=== PATIENT | male | born 1995 | race Caucasian/White ===

== ENCOUNTER 2019-02-28 19:07 | Emergency (ER) | payer MEDICAID, OTHER ==
[~2019-02-28] VITALS: Ht 188 cm; Wt 115.7 kg
[~2019-02-28 19:07] MED LIST: BACTDS PO; CEPH-443 PO; DIPH25CA6 PO; GUAI-637 PO; IBUP-1542 PO; IBUP800T48 PO; SODI44SP11 NASAL; TRAM50TA2 PO
[2019-02-28 19:33] VITALS: BP 139/91; PULSE 92; RESP 22; Ht 188 cm; Wt 115.7 kg
[2019-02-28] MEDS ORDERED: KETOROLAC 30 MG INJ IV STA (19:37)
[2019-02-28] MEDS ORDERED: DEXAMETHASONE 10 MG/ML 1 ML INJ IV ONE (20:00)
[2019-02-28] MEDS ORDERED: DIPHENHYDRAMINE 50 MG INJ IV ONE (20:00)
[2019-02-28] MEDS ORDERED: CEFTRIAXONE 1 GM/50 ML (PMX) 50 ML IVPB ONE (20:00)
[2019-02-28] MEDS ORDERED: IBUPROFEN 600 MG TAB PO ONE (20:00)
--- NOTE | 2019-02-28 21:12 | ERD ---
ER Documentation Chief Complaint Chief Complaint STATES POSSIBLE INSECT BITES TO LT HAND/ RT ELBOW SWELLING AND PAIN X2 DAYS HPI 24-year-old male presents with redness and swelling in the right upper arm for last 2 days. He also has a small lesion on his left hand. Symptoms started after doing some hedging with his father. He denies any specific memory of any insect bites or inciting events. Denies fevers, vomiting, shortness breath or chest pain. ROS All systems reviewed and are negative except as per history of present illness. Medications Home Meds Active Scripts Ibuprofen* (Motrin*) 600 Mg Tab, 600 MG PO Q6, #15 TAB Prov:MIKE CUETO MD 02/28/19 Diphenhydramine Hcl (Benadryl) 25 Mg Cap, 25 MG PO QID, #14 CAP Prov:MIKE CUETO MD 02/28/19 Cephalexin* (Keflex*) 500 Mg Capsule, 500 MG PO QID for 7 Days, CAP Prov:MIKE CUETO MD 02/28/19 Sodium Chloride (Saline Nasal [place]) 45 Ml [place], 2 SPRAYS NASAL Q2H PRN for NASAL CONGESTION, #1 BOTTLE Prov:MICHEL DOWNS. MUSIC THERAPIST 10/06/15 Guaifenesin* (Robitussin*) 100 Mg/5 Ml Syrup, 200 MG PO Q4H PRN for COUGH, #120 ML Prov:MICHEL DOWNS. MUSIC THERAPIST 10/06/15 Ibuprofen* (Motrin*) 800 Mg Tab, 800 MG PO Q6H PRN for PAIN AND OR ELEVATED TEMP, #30 TAB Prov:MICHEL DOWNS. MUSIC THERAPIST 10/06/15 Ibuprofen* (Motrin*) 600 Mg Tab, 600 MG PO Q6, #20 TAB Prov:ROBERTO CARLOS SONG MD 01/25/15 Tramadol HCl (Tramadol HCl) 50 Mg Tab, 50 MG PO Q4 PRN for PAIN, #20 TAB Prov:ROBERTO CARLOS SONG MD 01/25/15 Sulfamethoxazole-Trimethoprim* (Bactrim* DS) 800-160 Mg Tab, 1 TAB PO BID for 10 Days, TAB Prov:ROBERTO CARLOS SONG MD 01/25/15 Cephalexin* (Keflex*) 500 Mg Capsule, 500 MG PO QID for 10 Days, CAP Prov:ROBERTO CARLOS SONG MD 01/25/15 Allergies Allergies: Coded Allergies: No Known Drug Allergies (Verified Allergy, Mild, 01/24/15) PMhx/Soc Medical and Surgical Hx: pt denies Medical Hx, pt denies Surgical Hx History of Surgery: No Anesthesia Reaction: No Hx Neurological Disorder: No Hx Respiratory Disorders: No Hx Cardiac Disorders: No Hx Psychiatric Problems: No Hx Miscellaneous Medical Probl: No Hx Alcohol Use: No Hx Substance Use: No Hx Tobacco Use: No Smoking Status: Never smoker FmHx Family History: No diabetes, No coronary disease, No other Physical Exam Vitals Vital Signs Date Temp Pulse Resp B/P (MAP) Pulse Ox O2 O2 Flow FiO2 Time Delivery Rate 02/28/19 98.7 92 22 139/91 99 19:33 (107) Physical Exam Const: No acute distress Head: Atraumatic Eyes: Normal Conjunctiva ENT: Normal External Ears, Nose and Mouth. Neck: Full range of motion. No meningismus. Resp: Clear to auscultation bilaterally Cardio: Regular rate and rhythm, no murmurs Abd: Soft, non tender, non distended. Normal bowel sounds Skin: No petechiae or rashes Back: No midline or flank tenderness Ext: No cyanosis, or edema. Warmth and erythema approximately 6 cm in the right triceps area. Smaller lesion a few centimeters on the left hand dorsum. No restricted range of motion or deficits. No effusions, bony deformities. Neur: Awake and alert Psych: Normal Mood and Affect Result Diagram: 02/28/19203902/28/192039 Results 24 hrs Laboratory Tests Test 02/28/19 20:40 White Blood Count 7.9 10^3/ul Red Blood Count 5.03 10^6/ul Hemoglobin 14.0 g/dl Hematocrit 41.1 % Mean Corpuscular Volume 81.7 fl Mean Corpuscular Hemoglobin 27.8 pg Mean Corpuscular Hemoglobin Concent 34.1 g/dl Red Cell Distribution Width 12.7 % Platelet Count 269 10^3/UL Mean Platelet Volume 9.8 fl Immature Granulocytes % 0.300 % Neutrophils % 43.1 % Lymphocytes % 46.3 % Monocytes % 8.3 % Eosinophils % 1.9 % Basophils % 0.1 % Nucleated Red Blood Cells % 0.0 /100WBC Immature Granulocytes # 0.020 10^3/ul Neutrophils # 3.4 10^3/ul Lymphocytes # 3.6 10^3/ul Monocytes # 0.7 10^3/ul Eosinophils # 0.2 10^3/ul Basophils # 0.0 10^3/ul Nucleated Red Blood Cells # 0.0 10^3/ul Sodium Level 141 mmol/L Potassium Level 4.5 mmol/L Chloride Level 105 mmol/L Carbon Dioxide Level 25 mmol/L Anion Gap 11 Blood Urea Nitrogen 14 mg/dl Creatinine 0.90 mg/dl Est Glomerular Filtrat Rate mL/min > 60 mL/min Glucose Level 86 mg/dl Calcium Level 9.3 mg/dl Total Bilirubin 0.4 mg/dl Direct Bilirubin 0.00 mg/dl Indirect Bilirubin 0.4 mg/dl Aspartate Amino Transf (AST/SGOT) 40 IU/L Alanine Aminotransferase (ALT/SGPT) 44 IU/L Alkaline Phosphatase 110 IU/L Total Protein 8.9 g/dl Albumin 4.8 g/dl Globulin 4.10 g/dl Albumin/Globulin Ratio 1.17 Current Medications Medications Dose Sig/Doc Start Time Status Last (Trade) Ordered Route PRN Stop Time Admin Dose Reason Admin Ketorolac 30 mg ONCE STAT 02/28/19 DC 02/28/19 Tromethamine IV 19:37 02/28/19 20:28 (Toradol) 19:39 Ceftriaxone 50 ml @ ONCE ONCE 02/28/19 DC 02/28/19 Sodium 100 mls/hr IVPB 20:00 02/28/19 20:28 20:29 10 mg ONCE ONCE 02/28/19 DC 02/28/19 Dexamethasone IV 20:00 02/28/19 20:28 (Decadron) 20:01 25 mg ONCE ONCE 02/28/19 DC 02/28/19 Diphenhydrami IV 20:00 02/28/19 20:28 ne HCl 20:01 (Benadryl) Ibuprofen 600 mg ONCE ONCE 02/28/19 DC 02/28/19 (Motrin) PO 20:00 02/28/19 20:28 20:01 Procedures/MDM Patient presents with warmth and redness on his upper arm after doing some hygiene. Patient clinically has the appearance of a local reaction insect bite although patient may have cellulitis as well. He has no signs of SIRS criteria. Is no signs of ischemia, deficits, history of stress fracture, or additional concerning signs or symptoms. History and exam does not suggest septic arthritis as well. No effusion. Patient was given Decadron 10 mg IV, Benadryl 25 g IV as well as Rocephin 1 g IV. CBC is normal. Patient will be treated with Benadryl, Keflex, instructed for continuation of ice, primary care follow-up and return precautions. The patient was stable with no new complaints during the ER course. Clinically, there is no current evidence to suggest meningitis, sepsis, acute abdomen, pneumonia, stroke, acute coronary syndrome, pulmonary embolism, aortic dissection or any other emergent condition appearing to require further evaluation or hospitalization. Patient counseled regarding my diagnostic impression and care plan. Prior to discharge all questions answered. Pt agrees with treatment plan and understands strict return precautions. Pt is instructed to follow up with primary care provider within 24- 48 hours. Precautionary instructions provided including instructions to return to the ER if not improving or for any worsening or changing symptoms or concerns. Disclaimer: Inadvertent spelling and grammatical errors are likely due to EHR/dictation software use and do not reflect on the overall quality of patient care. Also, please note that the electronic time recorded on this note does not necessarily reflect the actual time of the patient encounter. Departure Diagnosis: Primary Impression: Insect bite Encounter type: initial encounter Site of insect bite: upper arm Laterality: unspecified laterality Qualified Codes: S40.869A - Insect bite (nonvenomous) of unspecified upper arm, initial encounter; W57.XXXA - Bitten or stung by nonvenomous insect and other nonvenomous arthropods, initial encounter Condition: Stable Patient Instructions: Insect Bites and Stings, Insect Sting/Bite, Infected Additional Instructions: Apply ice at home. Recheck for worsening redness, fevers, new worsening symptoms with primary care doctor. Will treat for infection but may be local reaction to insect bites. MIKE CUETO MD Feb 28, 2019 21:12
== END 2019-02-28 21:20 | disposition home or self-care (01) ==
LOC: FTE 19:07
DX: S40.861A Insect bite (nonvenomous) of right upper arm, initial encounter (principal); S60.562A Insect bite (nonvenomous) of left hand, initial encounter; W57.XXXA Bitten or stung by nonvenomous insect and other nonvenomous arthropods, initial encounter; Y92.9 Unspecified place or not applicable
CPT/HCPCS: 36415; 80053; 85025; 96374; 96375; J0696; J1100; J1200; J1885; Z7502; Z7610